=== PATIENT | male | born 1970 | race Two or more races ===

== ENCOUNTER 2024-07-17 09:42 | Outpatient (RCR) | payer MEDICAID, SELFPAY ==
--- NOTE | 2024-07-17 10:00 | XR_ITS ---
Examination: ELISABETH, hepatobiliary radioisotope scan Gallbladder ejection fraction study. Date and time of exam: 4 1021 hrs. Indications: Diagnosis fatty liver, epigastric pain nausea vomiting diarrhea beginning 4 days ago, history pancreatitis Technique: 6.2 mCi of 99M Hepatolite administered. Serial imaging then obtained from immediate through 60 minutes. 1.6 mcg selective catheter Kinevac administered for gallbladder ejection fraction study. Findings: Radioisotope activity within the liver is reasonably homogenous. Gallbladder, common bile duct small bowel activity noted Impression: Gallbladder activity, gallbladder ejection fraction normal 74%
== END 2024-07-22 23:59 | disposition home or self-care (01) ==
LOC: SNUC 09:42
PROVIDERS: PCP Family Medicine; Referring Provider Physician Assistant; Visit Provider Physician Assistant
DX: K76.0 Fatty (change of) liver, not elsewhere classified (principal); R10.11 Right upper quadrant pain; R10.13 Epigastric pain
CPT/HCPCS: 78227; A9537; J2805

== ENCOUNTER 2024-08-21 15:28 | Emergency (ER) | payer MEDICAID, SELFPAY ==
[2024-08-21 15:58] VITALS: BP 147/76; PULSE 80; RESP 18; TEMP 36.9; O2SAT 98; BMI 29.2
--- NOTE | 2024-08-21 16:06 | EDNOTE_ITS ---
ED Abdominal Pain RME/HPI General Chief Complaint: Abdominal Pain Stated complaint: 3 WEEKS STOMACH/RECTUM PAIN/CONSTIPATION Time seen by provider: 08/21/24 15:31 Arrival date/time: 08/21/24 15:28 RME / HPI RME / HPI narrative: Patient is a 54-year-old male who presents with complaint of epigastric pain intermittent for 3 weeks. Patient states the pain occurs after eating. States that the pain is worse when he eats spicy foods. Patient also reports that he has been constipated. He is passing gas. No vomiting. States that he has pain in his rectum when he has bowel movements. No blood in stool. Denies nausea, vomiting, or diarrhea. He denies fever or chills. Related Data Previous Rx's ?Medication ?Instructions ?Recorded meclizine 25 mg tablet 25 mg PO TID PRN dizziness # 20 tabs 01/08/24 dicyclomine 20 mg tablet 20 mg PO TID PRN abdominal p ain 03/21/24 #30 tabs pantoprazole 40 mg tablet,delayed 40 mg PO QDAY #30 ta bs 03/21/24 release (Protonix) promethazine 25 mg tablet 25 mg PO TID PRN nausea and 03/27/24 vomiting #30 tabs omeprazole 20 mg capsule,delayed 20 mg PO QDAY 14 days #14 caps 08/21/24 release polyethylene glycol 3350 17 17 g PO QDAY 5 days #119 g rekha 08/21/24 gram/dose oral powder Allergies Allergy/AdvReac Type Severity Reaction Status Date / Time No Known Allergies Allergy Verified 08/21/24 15:29 Review of Systems Review of Systems Systems Reviewed: All systems reviewed, normal except as documented ED Exam Narrative Physical exam: Constitutional: no acute distress, age appropriate, non-toxic Eyes: PERRL, conjunctivae w/o pallor, EOMI HENT: normocephalic, atraumatic. Oral mucosa moist Respiratory Effort: no stridor, effort normal, no retractions Breath sounds: Clear bilaterally; No rales, No rhonchi, No wheezing Cardiovascular: regular rhythm, S1 and S2 normal, no murmur Abdominal: soft; non-distended. Epigastric tenderness. No rebound tenderness or guarding. Negative Pagan sign. No McBurney tenderness. Rectal: External only. Large anal fissure at the 7 o'clock position. Musculoskeletal: no deformities, no swelling, no LE edema Skin: warm, dry; No rash Neurology: alert, oriented X 4. Normal gait. Moves all extremities spontaneously. Psychology: cooperative, normal mood Course Quality Measures none Orders Category Date Time Status CBC Stat Lab 08/21/24 16:14 Completed CMP [Comprehensive Metabolic Panel] Stat Lab 08/21/24 16:14 Completed Lipase Stat Lab 08/21/24 16:14 Completed mg Hyd/Al Hyd/Willie Susp [Maalox Susp] Med 08/21/24 16:04 Discontinued 30 ml PO X1 ONE Vital Signs Vital signs: Vital Signs Temperature 98.5 F 08/21/24 15:58 Pulse Rate 80 08/21/24 15:58 Respiratory Rate 18 08/21/24 15:58 Blood Pressure 147/76 H 08/21/24 15:58 Pulse Oximetry (%) 98 08/21/24 15:58 Oxygen Delivery Method Room Air 08/21/24 15:58 Abdominal Pain MDM MDM Narrative MDM Narrative:: 54-year-old male presents with epigastric pain and rectal pain. Differential diagnoses include gastritis, pancreatitis, cholecystitis, anal fissure, hemorrhoid, constipation. Labs reassuring?lipase is normal to rule out pancreatitis. In the absence of right upper quadrant tenderness and leukocytosis I highly doubt cholecystitis. Patient does have an anal fissure on exam and complaints of constipation. Considered abdomen pelvis CT, but abdominal exam is quite reassuring so I do not suspect appendicitis or diverticulitis, or SBO. Patient somewhat hyperglycemic and I counseled him to follow-up with primary care for recheck of his his glucose. Will send Rx for omeprazole for likely gastritis. MiraLAX for constipation. Counseled to do warm sitz baths for anal fissure. Strict return to ED precautions given. Patient data External records reviewed:: [facility] previous records Clinical information provided by:: patient Social determinants that could affect healthcare access:: none Patient has the following chronic illnesses:: None How is presenting disease/condition affected by chronic disease/condition?: no chronic disease Evaluation data The following diagnostics were reviewed and interpreted by me:: lab results Lab and/or radiology exams considered but not ordered:: Considered CT abdomen pelvis, but not indicated given reassuring abdominal exam Interpretation Summary: Labs unremarkable Medications / Prescriptions Medications or Prescriptions considered but not ordered:: None Medication administrations:: Medication Administration History Discontinued Medications Al Hydrox/Mg Hydrox/Simethicone (Mg Hyd/Al Hyd/Willie (Maalox Reg) Susp 30 Ml Udc) 30 ml PO X1 ONE Stop: 08/21/24 16:05 Last Admin: 08/21/24 17:06 Dose: 30 ml Documented By: EO See above Consultations Consultation(s) initiated? (list below): No Diagnosis Differential diagnosis abdominal pain: other (Constipation, anal fissure, hemorrhoid, gastritis, appendicitis, cholecystitis) Most likely diagnosis given after review of the tests above:: Gastritis, anal fissure Admission Indicated Admission indicated?: not indicated Admission Request Was there a request for admission?: No Disposition Plan Disposition Plan: Discharge Discharge Attestation Discharge Attestation: The patient and all family members were given an opportunity to ask questions and understood the discharge instructions. Discharge instructions specifically effects, indications for sooner follow up or return to the emergency department, and the expected course of current diagnosis. Patient condition: Stable Discharge Plan Plan Patient Disposition: HOME (Self Care) Prescriptions/Referrals Prescriptions/Med Rec: New omeprazole 20 mg capsule,delayed release(DR/EC) 20 mg PO QDAY 14 Days Qty: 14 0RF polyethylene glycol 3350 17 gram/dose powder 17 g PO QDAY 5 Days Qty: 119 0RF No Action meclizine 25 mg tablet 25 mg PO TID PRN (Reason: dizziness) Qty: 20 0RF dicyclomine 20 mg tablet 20 mg PO TID PRN (Reason: abdominal pain) Qty: 30 0RF pantoprazole [Protonix] 40 mg tablet,delayed release (DR/EC) 40 mg PO QDAY Qty: 30 0RF promethazine 25 mg tablet 25 mg PO TID PRN (Reason: nausea and vomiting) Qty: 30 0RF Problem List Clinical Impression: Gastritis, Constipation, Anal fissure Patient/Caregiver Discharge Instructions Education Materials: Understanding Anal Fissures, ED Gastritis (Adult) Additional Instructions: Mert un seguimiento con sanchez m?dico de atenci?n primaria para volver a controlar sanchez nivel de glucosa en abdiel. Evite los alimentos picantes y procesados. [place] devante medicamentos seg?n lo recetado. Para la fisura anal, mert ba?os de asiento tibios andi 15 a 20 minutos seguidos dos veces al d?a. Rachael muchos l?quidos. Puede suspender el uso de la crema de hidrocortisona. Regrese al servicio de urgencias en cualquier momento si presenta alg?n s?ntoma nuevo o que empeore. Follow-up with your primary doctor for recheck of your blood glucose. Avoid spicy and processed foods. Take your medications as prescribed. For the anal fissure?do warm sits baths for 15 to 20 minutes at a time twice a day. Drink plenty of fluids. You can discontinue using the hydrocortisone cream. Return to the ED at anytime for any new or worsening symptoms. Print Language: Burmese Stand Alone Forms: Yoselyn Award Info., Patient Portal Info Letter
[2024-08-21 16:32] LABS: Basophils % (Auto) 1 % (0-2.5); Eosinophils # (Auto) 0.1 Thou/mm3 (0.0-0.5); Eosinophils % (Auto) 1 % (0-10); Hematocrit 45.5 % (41.0-53.0); Hemoglobin 16.3 g/dL (13.5-16.0); Immature Granulocytes % (Auto) 0 % (0-0); Immature Granulocytes Auto 0.02 Thou/mm3 (0.00-0.00); Lymphocytes # (Auto) 2.1 Thou/mm3 (1.0-4.8); Lymphocytes % (Auto) 25 % (10-50); Mean Corpuscular HGB Conc 35.8 g/dl (31.0-37.0); Mean Corpuscular Hemoglobin 30.4 pg (25.0-35.0); Mean Corpuscular Volume 85 fL (80-100); Monocytes # (Auto) 0.7 Thou/mm3 (0.0-0.8); Monocytes % (Auto) 8 % (0-12); Neutrophils # (Auto) 5.4 Thou/mm3 (1.8-7.7); Neutrophils % (Auto) 65 % (37-80); Nucleated Red Blood Cell % 0 /100 WBC (0); Platelet Count 193 Thou/mm3 (140-440); RDW Standard Deviation 38.8 fL (35.1-43.9); Red Blood Count 5.37 Miln/mm3 (4.50-5.90); White Blood Count 8.4 Thou/mm3 (3.8-10.6)
[2024-08-21 16:59] LABS: Alanine Aminotransferase 39 U/L (10-49); Albumin/Globulin Ratio 1.9 (1.2-2.2); Alkaline Phosphatase 159 U/L (46-116); Anion Gap 7 (7-16); Aspartate Amino Transferase 27 U/L (0-34); BUN/Creatinine Ratio 19 Ratio (12-20); Bilirubin,Total 0.4 mg/dL (0.3-1.2); Blood Urea Nitrogen 15 mg/dL (9-23); Carbon Dioxide 28.9 mMol/L (20.0-31.0); Chloride 98 mMol/L (98-107); Creatinine (Component) 0.8 mg/dL (0.6-1.3); Estimated Creatinine Clearance 94.4 mL/min (>60); Globulin 2.7 gm/dL (2.3-3.5); Glucose 229 mg/dL (74-106); Lipase 50 U/L (12-53); Osmolality,Calculated 276 (275-295); Sodium 134 mMol/L (136-145); Total Protein 7.7 gm/dL (5.7-8.2); eGFR > 60 See Note
[2024-08-21] MEDS: MG HYD/AL HYD/SIME (Maalox Reg) SUSP 30 ML UDC PO (17:06)
== END 2024-08-21 19:13 | disposition home or self-care (01) ==
LOC: SERX 19:29
PROVIDERS: Physician Assistant; Emergency Provider Emergency Medicine
DX: K29.70 Gastritis, unspecified, without bleeding (principal); K60.2 Anal fissure, unspecified; K59.00 Constipation, unspecified
CPT/HCPCS: 36415; 80053; 83690; 85025; 99283; A9270

== ENCOUNTER 2024-11-08 18:29 | Emergency (ER) | payer MEDICAID, SELFPAY ==
[2024-11-08 18:31] VITALS: BMI 28.3
[2024-11-08 19:26] VITALS: BP 167/67; PULSE 62; RESP 18; TEMP 36.7; O2SAT 98
[2024-11-08] MEDS: AMOXICILLIN/POT CLAV 875 TABLET 1 TAB PO (20:03)
[2024-11-08] MEDS: HYDROcodone/APAP 5/325 TABLET 1 TAB PO (20:03)
--- NOTE | 2024-11-08 20:03 | EDNOTE_ITS ---
ED Dental RME/HPI General Chief complaint: Dental/Oral/Throat Stated complaint: L SIDE MOUTH PAIN X2 DAYS Time Seen by Provider: 11/08/24 19:49 Arrival date/time: 11/08/24 18:29 54M with no significant PMH presents to ED with L upper dental pain for 2 days. Patient has dentist appt next month. Limitations: no limitations Related Data Previous Rx's ?Medication ?Instructions ?Recorded meclizine 25 mg tablet 25 mg PO TID PRN dizziness # 20 tabs 01/08/24 dicyclomine 20 mg tablet 20 mg PO TID PRN abdominal p ain 03/21/24 #30 tabs pantoprazole 40 mg tablet,delayed 40 mg PO QDAY #30 ta bs 03/21/24 release (Protonix) promethazine 25 mg tablet 25 mg PO TID PRN nausea and 03/27/24 vomiting #30 tabs amoxicillin 875 mg-potassium 1 tab PO BID 7 days #14 t abs 11/08/24 clavulanate 125 mg tablet Allergies Allergy/AdvReac Type Severity Reaction Status Date / Time No Known Allergies Allergy Verified 11/08/24 18:33 Review of Systems Review of Systems Systems Reviewed: All systems reviewed, normal except as documented Constitutional Constitutional: Reports system reviewed and no additional complaints, except as documented, Denies fever(s) and Denies headache(s) ENT Ears, Nose, Mouth, and Throat: Reports as per HPI, Reports dental pain, Denies disequilibrium and Denies headache(s) Cardiovascular Cardiovascular: Reports system reviewed and no additional complaints, except as documented, Denies chest pain and Denies dyspnea Respiratory Respiratory: Reports system reviewed and no additional complaints, except as documented, Denies cough and Denies dyspnea Gastrointestinal Gastrointestinal: Reports system reviewed and no additional complaints, except as documented, Denies abdominal pain, Denies nausea and Denies vomiting Neurologic Neurologic: Reports system reviewed and no additional complaints, except as documented, Denies confusion, Denies disequilibrium and Denies headache(s) Psychiatric Psychiatric: Denies confusion Past Medical History Past Medical History NEUROLOGIC: Negative Neurological Disorders or Seizures CARDIAC: Positive Cardiac Disorders, Hypercholesterolemia and Hypertension; Negative Congestive Heart Failure RESPIRATORY: Negative Chronic Obstructive Pulmonary Disease (COPD) or Asthma GASTROINTESTINAL: Positive Gastrointestinal Disorders, Pancreatitis and Gastroesophageal Reflux Disease GENITOURINARY: Negative Renal Disease ENDOCRINE: Positive Diabetes Mellitus Type 2; Negative Diabetes Mellitus Type 1 HEMATOLOGIC: Negative Sickle Cell Disease OTHER HISTORY: Positive Falls and Blood Transfusions; Negative Blood Transfusion Reaction, Anesthesia Reactions or Cancer Family History FAMILY HISTORY: Positive Family Cardiac Disorders and Family Cancer; Negative Family Surgery or Family Anesthesia Reaction Social History SMOKING STATUS: Never smoker SUBSTANCE USE: does not use ED Exam General Limitations: Present no limitations General appearance: Present alert and in no apparent distress Head Head exam: Present atraumatic Eye Eye exam: Present normal appearance, PERRL and EOMI ENT ENT exam: Present mucous membranes moist Expanded ENT Exam Teeth exam: Present dental caries, dental tenderness # (12) and gingival swelling Neck Neck exam: Present normal inspection, full ROM and trachea midline Chest Chest inspection: Present normal inspection and symmetric chest wall rise Respiratory Respiratory exam: Present normal lung sounds bilaterally Cardiovascular Cardiovascular exam: Present regular rate, normal rhythm and normal heart sounds Abdominal Exam Abdominal exam: Present soft and normal bowel sounds Extremities Exam Extremities exam: Present normal inspection and full ROM Back Exam Back exam: Present normal inspection and full ROM Neurological Exam Neurological exam: Present alert, oriented X3 and CN II-XII intact Psychiatric Psychiatric exam: Present normal affect and normal mood Skin Skin exam: Present warm, dry, intact and normal color Course Quality Measures none Orders Category Date Time Status Amoxicillin/Pot Clav 875 [Augmentin 875] Med 11/08/24 19:55 Discontinued 1 tab PO X1 ONE HYDROcodone*/APAP 5/325 [[place] 5/325] Med 11/08/24 19:55 Discontinued 1 tab PO X1 ONE Vital Signs Vital signs: Vital Signs Temperature 98.1 F 11/08/24 19:26 Pulse Rate 62 11/08/24 19:26 Respiratory Rate 18 11/08/24 19:26 Blood Pressure 167/67 H 11/08/24 19:26 Pulse Oximetry (%) 98 11/08/24 19:26 Oxygen Delivery Method Room Air 11/08/24 19:26 O2 at 98% on RA and WNLs Dental / Oral MDM Narrative MDM Narrative:: 54M with no significant PMH presents to ED with L upper dental pain for 2 days. Patient has dentist appt next month. Physical exam reveals dental caries and L upper tooth tenderness and surrounding gingival swelling. Patient is afebrile, calm, and alert. Likely dental infection. 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 Patient data External records reviewed:: [facility] previous records Clinical information provided by:: patient Social determinants that could affect healthcare access:: none Patient has the following chronic illnesses:: none How is presenting disease/condition affected by chronic disease/condition?: no chronic disease Evaluation data The following diagnostics were reviewed and interpreted by me:: other (specify) (none) Lab and/or radiology exams considered but not ordered:: not ordered Interpretation Summary: n/a Medications / Prescriptions Medications or Prescriptions considered but not ordered:: ordered Medication administrations:: Medication Administration History Discontinued Medications Hydrocodone Bitart/Acetaminophen (Hydrocodone/[place]ap 5/325 Tablet) 1 tab PO X1 ONE Stop: 11/08/24 19:56 Amoxicillin/Clavulanate Potassium (Amoxicillin/Pot Clav 875 Tablet) 1 tab PO X1 ONE Stop: 11/08/24 19:56 above Consultations Consultation(s) initiated? (list below): No Diagnosis Dental Differential Diagnosis: gingival abscess, dental caries, toothache, dental abscess, fracture of tooth and aphthous ulcer Most likely diagnosis given after review of the tests above:: dental infection Admission Indicated Admission indicated?: not indicated Admission Request Was there a request for admission?: No Disposition Plan Disposition Plan: Discharge Discharge Attestation Discharge Attestation: The patient and all family members were given an opportunity to ask questions and understood the discharge instructions. Discharge instructions specifically effects, indications for sooner follow up or return to the emergency department, and the expected course of current diagnosis. Patient condition: Stable Discharge Plan Plan Patient Disposition: HOME (Self Care) Disposition Comment: Stable Prescriptions/Referrals Prescriptions/Med Rec: New amoxicillin-pot clavulanate 875-125 mg tablet 1 tab PO BID 7 Days Qty: 14 0RF No Action meclizine 25 mg tablet 25 mg PO TID PRN (Reason: dizziness) Qty: 20 0RF dicyclomine 20 mg tablet 20 mg PO TID PRN (Reason: abdominal pain) Qty: 30 0RF pantoprazole [Protonix] 40 mg tablet,delayed release (DR/EC) 40 mg PO QDAY Qty: 30 0RF promethazine 25 mg tablet 25 mg PO TID PRN (Reason: nausea and vomiting) Qty: 30 0RF Problem List Clinical Impression: Dental infection Patient/Caregiver Discharge Instructions Education Materials: ED Dental Abscess Additional Instructions: Please follow-up with PCP within 24-48 hours and return immediately if symptoms worsen. Print Language: Occitan Stand Alone Forms: Patient Portal Info Letter PA/[employer] Supervising Physician PA/[employer] Supervising Physician: Dr. Yan
== END 2024-11-08 20:07 | disposition home or self-care (01) ==
LOC: SERX 20:08
PROVIDERS: Emergency Provider Emergency Medicine
DX: K04.7 Periapical abscess without sinus (principal)
CPT/HCPCS: 99283; A9270

== ENCOUNTER 2024-12-06 17:20 | Emergency (ER) | payer MEDICAID, SELFPAY ==
[2024-12-06 17:21] VITALS: BMI 29.2
[2024-12-06 17:37] VITALS: BP 122/76; PULSE 76; RESP 18; TEMP 37.1; O2SAT 96
--- NOTE | 2024-12-06 17:41 | EKG_ITS ---
[facility] Test Date: 2024-12-06 Pat Name: MOODY CARROLL Department: Room: - Gender: Male Medical Certification Specialist: : [id number] Requested By: Adam Patterson Order Number: [id number] Reading MD: Adam Patterson Measurements Intervals [place] Rate: 71 P: 84 MN: 165 QRS: -23 QRSD: 94 T: 60 QT: 373 QTc: 406 Interpretive Statements SINUS RHYTHM BORDERLINE LEFT AXIS DEVIATION [QRS AXIS < -20] NONSPECIFIC T-WAVE ABNORMALITY Compared to ECG 03/21/2024 17:00:39 T-wave abnormality now present /store/S0/[id number]/[id number].pdf
--- NOTE | 2024-12-06 17:41 | XR_ITS ---
Examination: PA lateral chest 2 views TECHNIQUE: Upright PA and lateral chest 2 views Date and time: December 06, 2024 1905 hours Comparison January 08, 2024 INDICATIONS: Chest pain beginning 4 days ago. FINDINGS: Parenchymal disease in the lingular segment obscuring detail left cardiac contour Normal heart size. Right lung clear IMPRESSION: Scarring versus pneumonia in the lingular segment left upper lobe, the appearance should be clinically correlated
--- NOTE | 2024-12-06 17:42 | PD.EDRME ---
Rapid Medical Screening Exam E Arrival date/time: 12/06/24 17:20 54-year-old male with no known medical history presents to the emergency room with a chief complaint of 4 out of 10 right-sided sternal chest pain x 3 days. I have greeted and performed a focused initial assessment of this patient. A comprehensive ED assessment and evaluation of the patient, analysis of all test results, and completion of the medical decision making process will be conducted by additional ED providers. Chief Complaint: Chest Pain Time Seen by Provider: 12/06/24 17:32 Vital signs: Vital Signs Temperature 98.7 F 12/06/24 17:37 Pulse Rate 76 12/06/24 17:37 Respiratory Rate 18 12/06/24 17:37 Blood Pressure 122/76 12/06/24 17:37 Pulse Oximetry (%) 96 12/06/24 17:37 Oxygen Delivery Method Room Air 12/06/24 17:37 Vital signs reviewed by provider: Yes
[2024-12-06 18:08] LABS: Basophils % (Auto) 0 % (0-2.5); Eosinophils # (Auto) 0.2 Thou/mm3 (0.0-0.5); Eosinophils % (Auto) 2 % (0-10); Hematocrit 43.1 % (41.0-53.0); Hemoglobin 15.6 g/dL (13.5-16.0); Immature Granulocytes % (Auto) 0 % (0-0); Immature Granulocytes Auto 0.02 Thou/mm3 (0.00-0.00); Lymphocytes # (Auto) 2.3 Thou/mm3 (1.0-4.8); Lymphocytes % (Auto) 34 % (10-50); Mean Corpuscular HGB Conc 36.2 g/dl (31.0-37.0); Mean Corpuscular Hemoglobin 29.7 pg (25.0-35.0); Mean Corpuscular Volume 82 fL (80-100); Monocytes # (Auto) 0.6 Thou/mm3 (0.0-0.8); Monocytes % (Auto) 9 % (0-12); Neutrophils # (Auto) 3.8 Thou/mm3 (1.8-7.7); Neutrophils % (Auto) 55 % (37-80); Nucleated Red Blood Cell % 0 /100 WBC (0); Platelet Count 190 Thou/mm3 (140-440); RDW Standard Deviation 39.5 fL (35.1-43.9); Red Blood Count 5.26 Miln/mm3 (4.50-5.90)
[2024-12-06 18:38] LABS: B-Type Natriuretic Peptide < 20 pg/mL (0-100)
[2024-12-06 18:40] LABS: Alanine Aminotransferase 41 U/L (10-49); Albumin, Serum 4.4 gm/dL (3.5-5.0); Albumin/Globulin Ratio 1.5 (1.2-2.2); Alkaline Phosphatase 134 U/L (46-116); Anion Gap 11 (7-16); Aspartate Amino Transferase 33 U/L (0-34); BUN/Creatinine Ratio 15 Ratio (12-20); Bilirubin,Total 0.4 mg/dL (0.3-1.2); Blood Urea Nitrogen 12 mg/dL (9-23); Calcium 8.9 mg/dL (8.3-10.6); Calcium (Corrected) 8.9 mg/dL (8.5-10.1); Carbon Dioxide 27.5 mMol/L (20.0-31.0); Chloride 102 mMol/L (98-107); Creatinine (Component) 0.8 mg/dL (0.6-1.3); Estimated Creatinine Clearance 94.4 mL/min (>60); Globulin 2.9 gm/dL (2.3-3.5); Glucose 172 mg/dL (74-106); Osmolality,Calculated 283 (275-295); Potassium 3.9 mMol/L (3.4-5.1); Sodium 140 mMol/L (136-145); Total Protein 7.3 gm/dL (5.7-8.2); Troponin I < 0.020 ng/mL (0.0-0.045); eGFR > 60 See Note
--- NOTE | 2024-12-06 18:45 | EDNOTE_ITS ---
ED Chest Pain RME/HPI General Chief Complaint: Chest Pain Stated Complaint: RIGHT SIDE CHEST PAIN X 4D Time Seen by Provider: 12/06/24 17:32 Arrival date/time: 12/06/24 17:20 RME / HPI RME / HPI narrative: 12/06/24 17:20 54-year-old male with no known medical history presents to the emergency room with a chief complaint of 4 out of 10 right-sided sternal chest pain x 3 days. I have greeted and performed a focused initial assessment of this patient. A comprehensive ED assessment and evaluation of the patient, analysis of all test results, and completion of the medical decision making process will be conducted by additional ED providers. This section includes all my notes and documentations, including HPI, PE, and ED course. Siva Yan MD HPI: 54yo male presents to the ED for a chief complaint of a productive cough with green phlegm for the last 1 week. Patient reports associated chest pain when he coughs for the last 3 days, as well as having subjective fevers at home. Patient denies any shortness of breath, N/V/D, abdominal pain or any other associated symptoms. No other complaints reported. ROS: All negative except as documented in HPI. Physical Exam: General: Alert and oriented. Hacking cough noted. Eyes: Conjunctivae and lids clear. ENT: No nasal congestion. Pharynx normal. TM normal bilaterally. Neck: Supple. Heart: RRR. Lungs: No respiratory distress. Good air movement. Bibasilar rales. Abdomen: Soft and nontender. Skin: Warm and dry. Neuro: Alert and oriented X 3. I reviewed all diagnostic test results. My interpretation of the EKG is sinus rhythm with no acute ST?T changes. My interpretation of the chest x-ray is infiltrates. Blood tests unremarkable. At this point, diagnoses include pneumonia. Recommended treatment at home. Based on my best medical judgment, made decision no further evaluation or treatment indicated at this time. Patient understands and agrees to the discharge instructions customized and printed, see below. Discharge instructions from Dr. Yan: --After evaluation, there is no life-threatening condition such as heart attack. You have pneumonia. --No physical exertion for 3 days to help rest the lungs. ?No smoking or exposure to smoking or pets or dust or cold or humidity. --Zithromax and cefdinir to kill the germs causing the pneumonia. --Prednisone to help decrease the swelling in the airways. --Albuterol 2 puffs every 4-6 hours today and tomorrow to help keep the airways open. Then as needed for cough or shortness of breath. --See a private doctor next week for recheck if not completely better. --Seek immediate medical care with worsening or with any concerns. Siva Yan MD Related Data Previous Rx's ?Medication ?Instructions ?Recorded meclizine 25 mg tablet 25 mg PO TID PRN dizziness # 20 tabs 01/08/24 dicyclomine 20 mg tablet 20 mg PO TID PRN abdominal p ain 03/21/24 #30 tabs pantoprazole 40 mg tablet,delayed 40 mg PO QDAY #30 ta bs 03/21/24 release (Protonix) promethazine 25 mg tablet 25 mg PO TID PRN nausea and 03/27/24 vomiting #30 tabs naproxen 500 mg tablet 500 mg PO BID PRN pain #30 t abs 11/08/24 albuterol sulfate 90 mcg/actuation 2 puff inhalation Q 6H PRN 12/06/24 aerosol inhaler shortness of breath or wheez ing #8.5 grams azithromycin 500 mg tablet 500 mg PO QDAY 3 days #3 ta bs 12/06/24 (Zithromax TRI-STEPHANIE) cefdinir 300 mg capsule 300 mg PO BID #14 caps 12/06 prednisone 20 mg tablet 20 mg PO BID 3 days #6 tabs 12/06/24 Allergies Allergy/AdvReac Type Severity Reaction Status Date / Time No Known Allergies Allergy Verified 12/06/24 17:23 Review of Systems Review of Systems Systems Reviewed: All systems reviewed, normal except as documented Past Medical History Past Medical History NEUROLOGIC: Negative Neurological Disorders or Seizures CARDIAC: Positive Cardiac Disorders, Hypercholesterolemia and Hypertension; Negative Congestive Heart Failure RESPIRATORY: Negative Chronic Obstructive Pulmonary Disease (COPD) or Asthma GASTROINTESTINAL: Positive Gastrointestinal Disorders, Pancreatitis and Gastroesophageal Reflux Disease GENITOURINARY: Negative Renal Disease ENDOCRINE: Positive Diabetes Mellitus Type 2; Negative Diabetes Mellitus Type 1 HEMATOLOGIC: Negative Sickle Cell Disease OTHER HISTORY: Positive Falls and Blood Transfusions; Negative Blood Transfusion Reaction, Anesthesia Reactions or Cancer Family History FAMILY HISTORY: Positive Family Cardiac Disorders and Family Cancer; Negative Family Surgery or Family Anesthesia Reaction Social History SMOKING STATUS: Never smoker SUBSTANCE USE: does not use ED Exam Narrative Physical exam: As noted in HPI. Course Course Course Narrative: CXR is ordered for determining the etiology of chest pain. Quality Measures none Orders Category Date Time Status EKG (ED ONLY) *Do not use* NOW Care 12/06/24 17:41 Completed EKG (ED Only) Stat Exams 12/06/24 17:41 Draft XR chest 2V Stat Exams 12/06/24 17:41 Completed B-Type Natriuretic Peptide Stat Lab 12/06/24 17:59 Completed CBC Stat Lab 12/06/24 17:59 Completed Comprehensive Metabolic Panel Stat Lab 12/06/24 17:59 Completed Troponin I Stat Lab 12/06/24 17:59 Completed Vital Signs Vital signs: Vital Signs Temperature 98.7 F 12/06/24 17:37 Pulse Rate 76 12/06/24 17:37 Respiratory Rate 18 12/06/24 17:37 Blood Pressure 122/76 12/06/24 17:37 Pulse Oximetry (%) 96 12/06/24 17:37 Oxygen Delivery Method Room Air 12/06/24 17:37 Chest Pain MDM Narrative MDM Narrative:: 54yo male presents to the ED for a chief complaint of a productive cough with green phlegm for the last 1 week. Patient reports associated chest pain when he coughs for the last 3 days, as well as having subjective fevers at home. Patient denies any shortness of breath, N/V/D, abdominal pain or any other associated symptoms. No other complaints reported. Patient data External records reviewed:: [facility] previous records (Per chart review, patient was seen here on 11/08/24 for a dental infection.) Clinical information provided by:: patient Social determinants that could affect healthcare access:: none Patient has the following chronic illnesses:: DM, GERD How is presenting disease/condition affected by chronic disease/condition?: uneffected by Evaluation data The following diagnostics were reviewed and interpreted by me:: lab results, radiology exam(s) and EKG tracing(s) (My interpretation of the EKG is: Sinus rhythm (71 bpm) with nonspecific ST-T changes. Siva Yan MD) Lab and/or radiology exams considered but not ordered:: none Interpretation Summary: I reviewed all diagnostic test results. My interpretation of the EKG is sinus rhythm with no acute ST?T changes. My interpretation of the chest x-ray is infiltrates. Blood tests unremarkable. Medications / Prescriptions Medications or Prescriptions considered but not ordered:: none Medication administrations:: none Consultations Consultation(s) initiated? (list below): No Diagnosis Chest Pain Differential Diagnosis: pneumothorax, stable angina, unstable angina pectoris, atypical chest pain, st elevation myocardial infarction, costochondritis and other (pneumonia) Most likely diagnosis given after review of the tests above:: Pneumonia Admission Indicated Admission indicated?: not indicated Explain why admission is indicated or not indicated:: There was no indication for admission. Admission Request Was there a request for admission?: No Disposition Plan Disposition Plan: Discharge Discharge Attestation Discharge Attestation: The patient and all family members were given an opportunity to ask questions and understood the discharge instructions. Discharge instructions specifically effects, indications for sooner follow up or return to the emergency department, and the expected course of current diagnosis. Patient condition: Stable Discharge Plan Plan Patient Disposition: HOME (Self Care) Prescriptions/Referrals Prescriptions/Med Rec: New prednisone 20 mg tablet 20 mg PO BID 3 Days Qty: 6 0RF Taper: Prednisone Taper 20 mg DAILY for 2 Days and 0 Hour 10 mg DAILY for 2 Days and 0 Hour 5 mg DAILY for 7 Days and 0 Hour albuterol sulfate 90 mcg/actuation HFA aerosol inhaler 2 puff inhalation Q6H PRN (Reason: shortness of breath or wheezing) Qty: 8.5 0RF cefdinir 300 mg capsule 300 mg PO BID Qty: 14 0RF azithromycin [Zithromax TRI-STEPHANIE] 500 mg tablet 500 mg PO QDAY 3 Days Qty: 3 0RF No Action meclizine 25 mg tablet 25 mg PO TID PRN (Reason: dizziness) Qty: 20 0RF dicyclomine 20 mg tablet 20 mg PO TID PRN (Reason: abdominal pain) Qty: 30 0RF pantoprazole [Protonix] 40 mg tablet,delayed release (DR/EC) 40 mg PO QDAY Qty: 30 0RF promethazine 25 mg tablet 25 mg PO TID PRN (Reason: nausea and vomiting) Qty: 30 0RF naproxen 500 mg tablet 500 mg PO BID PRN (Reason: pain) Qty: 30 0RF Referrals: Jim Quintana PA-C [Primary Care Provider] - In 1 week Problem List Clinical Impression: Pneumonia Patient/Caregiver Discharge Instructions Discharge Activity: activity as tolerated Education Materials: ED Pneumonia (Adult) Additional Instructions: Discharge instructions from Dr. Yan: --After evaluation, there is no life-threatening condition such as heart attack. You have pneumonia. --No physical exertion for 3 days to help rest the lungs. ?No smoking or exposure to smoking or pets or dust or cold or humidity. --Zithromax and cefdinir to kill the germs causing the pneumonia. --Prednisone to help decrease the swelling in the airways. --Albuterol 2 puffs every 4-6 hours today and tomorrow to help keep the airways open. Then as needed for cough or shortness of breath. --See a private doctor next week for recheck if not completely better. --Seek immediate medical care with worsening or with any concerns. Instrucciones de jonel del Dr. Yan: --Despu?s de la evaluaci?n, no se observa ninguna afecci?n potencialmente mortal, guerline un infarto. Tiene neumon?a. --No realice esfuerzo f?sico andi 3 d?as para ayudar a que los pulmones descansen. --No fume ni se exponga al humo, a las mascotas, al polvo, al fr?o ni a la humedad. --Zithromax y cefdinir para eliminar los g?rmenes que causan la neumon?a. --Prednisona para ayudar a disminuir la inflamaci?n de las v?as respiratorias. --Albuterol: 2 inhalaciones cada 4-6 horas hoy y ma?karlie para ayudar a mantener las v?as respiratorias abiertas. Luego, seg?n sea necesario, en jazmine de tos o dificultad para respirar. --Consulte a un m?dico particular la pr?xima semana para mark revisi?n si no mejora por completo. --Busque atenci?n m?dica inmediata si la condici?n empeora o si tiene alguna inquietud. Print Language: Faroese Stand Alone Forms: Yoselyn Award Info., Patient Portal Info Letter
== END 2024-12-06 19:12 | disposition home or self-care (01) ==
PROVIDERS: Nurse Practitioner Family; Emergency Provider Emergency Medicine; PCP Family Medicine
DX: J18.9 Pneumonia, unspecified organism (principal)
CPT/HCPCS: 36415; 71046; 80053; 83880; 84484; 85025; 93005; 99283